=== PATIENT | male | born 1990 | race Caucasian/White ===

== ENCOUNTER 2016-07-05 00:16 | Emergency (ER) | payer OTHER ==
[~2016-07-05] VITALS: Ht 175.3 cm; Wt 75.9 kg
[2016-07-05 00:21] VITALS: BP 108/68; PULSE 100; RESP 16; O2SAT 100
--- NOTE | 2016-07-05 00:37 | ED.REPORT ---
HPI-General Illness Date of Service Jul 05, 2016 ED Provider: Dr. Moreno Pt is a 26 y/o male presenting to the ED due to nausea and vomiting onset a few hours ago. Pt states that he smokes marijuana every day and works as a marijuana grower. He smoked some marijuana tonight, ate half a weed cookie edible, and about an hour later began experiencing persistent nausea, vomiting, abdominal cramping, lightheadedness. He denies fever, hematemesis, diarrhea. He has not experiencing symptoms similar to this before. Nursing Notes Stated Complaint: VOMITTING & ABDOMINAL PAIN Chief Complaint: Male Abdominal Pain Nursing Notes Reviewed: Yes Allergies: Coded Allergies: No Known Allergies (Unverified , 11/11/15) Scheduled Ondansetron ODT (Ondansetron ODT) 8 Mg Tab.rapdis 8 MG PO QID General Time Seen by MD: 00:37 Chief Complaint Vomiting Hx Obtained From: Patient Arrived By: Walk-in Sudden in Onset?: Yes Onset Occurred: 1 - 4 hours ago Symptom Duration: Since onset Location: : Abdomen Quality: Aching, Cramping Severity: Current: Mild Severity: Maximum: Mild Similar Sx Previous: No Past Medical History Past Medical History Hx head trauma Otherwise denies Past Surgical History L shoulder Smoking History Current Every Day Smoker Social History Drug Use: THC Ambulatory Status Independent Review of Systems Full Review of Systems Constitutional: Denies: Chills, Fever GI: Reports: Abdominal pain, Nausea, Vomiting, Denies: Diarrhea Complete sys rev & neg: except as marked. Physical Exam Vital Signs Vital Signs Date Time Temp Pulse Resp B/P Pulse Ox O2 Delivery O2 Flow Rate FiO2 07/05/16 02:34 36.4 84 14 102/58 98 Room Air 07/05/16 00:21 36.6 100 16 108/68 100 Room Air Initial VS: Reviewed Head / Eyes: Atraumatic, Normocephalic, PERRL ENT: Mucous membranes moist, Conjunctiva normal, No scleral icterus Neck: Supple, Full range of motion Cardiovascular: Regular rate & rhythm, Heart sounds normal, Intact distal pulses Skin: Warm, Dry, No cyanosis Neurologic: Alert, Oriented, Nonfocal Psychiatric: Mood/affect normal, Behavior normal, Normal thought content General/Constitutional: Awake, Alert, No acute distress, Cooperative, Not toxic appearing Distress / Hydration: Positive: Dehydration mild Appearance / Presentation: Positive: Pale (mild) Respiratory / Chest: Atraumatic, Breath sounds NL, Breath sounds = bilat, No respiratory distress, No rales, No rhonchi, No wheezing, No retractions, No stridor, No chest tenderness, No chest wall deformity, No crepitus Mild tachypnea Abdomen: Atraumatic, Soft, No guarding, No rebound, BS normoactive, No distention, No palpable mass Tenderness/Guarding/Rebound: Positive: Tender epigastric (mild) Interpretation & Diagnostics Lab Results Interpretation Result Diagram: 07/05/16 0035 07/05/16 0035 Test 07/05/16 00:35 White Blood Count 20.4th/mm3 (3.8-10.1) Red Blood Count 4.97mil/mm3 (4.40-5.80) Hemoglobin 15.5g/dL (13.8-17.2) Hematocrit 44.9% (41.0-50.0) Mean Corpuscular Volume 90.3fL (81-100) Mean Corpuscular Hemoglobin 31.2pg (27.0-35.0) Mean Corpuscular Hemoglobin Concent 34.5% (32.0-37.0) Red Cell Distribution Width 12.0% (12.3-15.4) Platelet Count 302bil/L (150-400) Neutrophils (%) (Auto) 71.0% (40-74) Lymphocytes (%) (Auto) 18.7% (14-46) Monocytes (%) (Auto) 7.9% (4-12) Eosinophils (%) (Auto) 1.7% (0-5) Basophils (%) (Auto) 0.3% (0-3) Sodium Level 138mEq/L (134-144) Potassium Level 3.6mEq/L (3.5-5.2) Chloride Level 96mEq/L (97-108) Carbon Dioxide Level 24mmol/L (18-29) Blood Urea Nitrogen 22mg/dL (6-20) Creatinine 0.82mg/dL (0.76-1.27) Estimat Glomerular Filtration Rate 123mL/min (>59) Glucose Level 160mg/dL (60-99) Calcium Level 9.5mg/dL (8.5-10.1) Magnesium Level 2.1mg/dL (1.6-2.6) Total Bilirubin 0.4mg/dL (0.0-1.2) Aspartate Amino Transf (AST/SGOT) 22U/L (0-50) Alanine Aminotransferase (ALT/SGPT) 22U/L (0-44) Alkaline Phosphatase 66U/L (25-150) Total Protein 7.5g/dL (6.4-8.4) Albumin 4.7g/dL (3.4-5.0) Lipase 22U/L (13-60) Hold Cervantes Top Tube Received (Received) Re-Eval/Medical Decision Med Decision/Clinical Course 26-year-old presents with acute nausea and vomiting resolved here after meds and fluids. Contribution of marijuana uncertain but does not seem likely. He did consume a substantial amount of marijuana and a cookie, and may acutely of head intoxication as an issue. I doubt marijuana related emesis syndrome. This is probably an acute viral gastroenteritis. Home with Zofran after 2 L of fluid here. Time of Eval: 01:24 Patient Status: Condition resolved, Complete relief, Pain improved Re-Evaluation/Progress Note: Pt rechecked. Vomiting has resolved. Informed pt of plan for treatment. Pt understands and agrees with plan for treatment. F/U and RTER warnings given. All questions addressed. Counseled Regarding: Diagnosis, Lab results, Need for follow-up, When/why to return to ED Discharge & Departure Primary Impression: Nausea and vomiting Vomiting type: unspecified Vomiting Intractability: non-intractable Qualified Code: R11.2 - Nausea with vomiting, unspecified Disposition: Home Discharge Condition All VS Reviewed: Yes Condition: Stable Additional Instructions: Zofran if needed for nausea. May be used up to four times daily if needed. Clear fluid diet and then advance as tolerated. Avoid fats meats and milk for several days. Avoid marijuana for a few days. Avoid consuming edible marijuana until you feel completely well. Referrals: Joce Connelly DO (PCP) Maciej Attestation Portions of this note were transcribed by Clint Vincent. I, Dr. Moreno personally performed the history, physical exam and medical decision-making; I reviewed and confirmed the accuracy of the information in the transcribed note. Signed by Maciej Caldera, 07/05/1638 copies to: Joce Connelly Christopher W MD Jul 05, 2016 00:37 CLINT VINCENT Jul 05, 2016 00:47
[2016-07-05] MEDS ORDERED: 0.9% Sodium Chloride 1,000 ML IV ONE ×2 (00:38→00:45)
[2016-07-05] MEDS ORDERED: Pantoprazole 4 mg/mL 10 mL Inj IVPUSH ONE (00:40)
[2016-07-05] MEDS ORDERED: Ondansetron 2 mg/mL 2 mL Inj IVPUSH ONE (00:40)
[2016-07-05 00:51] LABS: BASOPHILS % (AUTO) 0.3 % (0-3); EOSINOPHILS % (AUTO) 1.7 % (0-5); MONOCYTES % (AUTO) 7.9 % (4-12); Mean Corpuscular Hemoglobin 31.2 pg (27.0-35.0); Mean Corpuscular Volume 90.3 fL (81-100); Platelet Count 302 bil/L (150-400)
[2016-07-05 01:15] LABS: Magnesium 2.1 mg/dL (1.6-2.6)
[2016-07-05] MEDS ORDERED: ONDA8TAB10 PO (01:21)
[2016-07-05 02:34] VITALS: BP 102/58; PULSE 84; RESP 14; O2SAT 98
== END 2016-07-05 02:35 | disposition home or self-care (01) ==
LOC: SED 00:16
DX: R11.2 Nausea with vomiting, unspecified (principal); F17.200 Nicotine dependence, unspecified, uncomplicated
CPT/HCPCS: 36415; 80053; 83690; 83735; 85025; 96361; 96374; 96375; 99284; J2405; J7030